=== PATIENT | male | born 1975 | race Caucasian/White ===

== ENCOUNTER → 2019-12-21 | Outpatient (CLI) | payer OTHER ==
--- NOTE | 2019-12-22 01:36 | MR ---
EXAMINATION TYPE: MR foot RT wo con DATE OF EXAM: 12/21/2019 COMPARISON: None HISTORY: pain from mid calf to toes, injury Jun 2018 Multiplanar multiecho imaging of the right foot was performed without contrast. The metatarsals are i ntact. Joint spaces are fairly normal. I see no focal bone destruction. There is no evidence of a sof t tissue mass. The tarsal bones are intact. I see no fracture line. There is mild increased joint flu id at the first MP joint. Flexor tendons of the foot appear intact. Plantar fascia appears normal. IMPRESSION: Mild increased fluid at the first MP joint could relate to some synovitis. No fracture.
--- NOTE | 2019-12-22 02:17 | MR ---
EXAMINATION TYPE: MR ankle RT wo con DATE OF EXAM: 12/21/2019 COMPARISON: HISTORY: pain from mid calf to toes, injury Jun 2018 Multiplanar multiecho imaging of the right ankle was performed with no contrast. Achilles tendon is intact. Plantar fascia appears normal. Medial and lateral flexor tendons of the an kle appear intact. The collateral ligaments are intact. I see no bony destructive process. There is n o evidence of a fracture. Intertarsal joint spaces are fairly normal. There is no evidence of a soft tissue mass. IMPRESSION: Negative MR scan of the right ankle.
== END | disposition home or self-care (01) ==
LOC: RADMRIMAIN 20:01
PROVIDERS: ATTEND Orthopaedic Surgery
DX: M25.571 Pain in right ankle and joints of right foot (principal)